=== PATIENT | female | born 1945 | race Caucasian/White ===

== ENCOUNTER 2023-02-17 15:56 | Outpatient (REF) | payer OTHER, SELFPAY ==
[2023-02-17 16:23] LABS: SARS-CoV-2 Ag NEGATIVE (NEGATIVE)
[2023-02-18 15:22] LABS: SARS-CoV-2 NAA NOT DETECTED (NOT DETECTE)
== END 2023-02-17 15:57 | disposition home or self-care (01) ==
LOC: LAB 15:56
PROVIDERS: PCP Internal Medicine; Visit Provider Internal Medicine
DX: Z20.822 Contact with and (suspected) exposure to COVID-19 (principal)
CPT/HCPCS: 87635; 87811